=== PATIENT | male | born 1955 | race Caucasian/White ===

== ENCOUNTER 2017-09-23 18:15 | Observation (INO) | payer OTHER ==
[~2017-09-23] VITALS: Ht 175.3 cm; Wt 90.2 kg
[2017-09-23] MEDS ORDERED: ZESTRIL20 MG PO (18:52)
[2017-09-23] MEDS ORDERED: ACETAMINOPHEN-1 EAC1 PO (18:55)
[2017-09-23] MEDS ORDERED: INDAPAMIDE2.5 MG PO (19:43)
[2017-09-23] MEDS ORDERED: ASPIRIN81 MG PO (19:44)
[2017-09-23] MEDS ORDERED: TRIAMCINOLONE AC5 GM (19:50)
--- NOTE | 2017-09-23 23:04 | NUR ---
PT ARRIVED TO ROOM 119 FROM ED, CAME TO ED DUE NOT FEELING GOOD, POOR MEMORY FEELING OFF BALANCE. PT TIRED, WANTING TO SLEEP. ANSWERED QUESTIONS, CAN'T REMEMBER MEDICAL HISTORY. SON PRESENT.
--- NOTE | 2017-09-24 03:21 | NUR ---
PT NOTIFIED OF [facility], NO NEW ORDERS
--- NOTE | 2017-09-24 05:14 | NUR ---
PT CURRENTLY IN BED RESTING, EYES CLOSED, NO C/O H/A OR VISUAL PROBLEMS, NO C/O FACIAL PAIN. BP ON ADMISSION WAS 137/91, AT 0140 WAS 125/74. PT INDEPENDENT IN THE ROOM, HAS SLEPT MOST OF THIS SHIFT. NO FURTHER TEARFUL EPISODES SINCE ADMIT. HIS SON CALLED THIS UNIT EARLIER AND STATED TO PLEASE CALL HIM SOON PT GETS DC ORDERS HE LIVES IN [place]. WILL NOTIFY INCOMING RN
[2017-09-24] MEDS ORDERED: NORVASC5 MG PO (07:54)
[2017-09-24] MEDS ORDERED: INDAPAMIDE2.5 MG PO (07:55)
--- NOTE | 2017-09-24 08:30 | NUR ---
PT AWAKE IN BED, ATE MOST OF BREAKFAST, NANO WELL. PT DENIES DIZZINESS, OR LIGHT HEADEDNESS, REPORTS FEELING FATIGUED. TELE #3 ON, HR 95 SR. ALERT AND ORIENTED TO ALL. DENIES PAIN. IV SITE CDI, FLUSHES WELL. CALL LIGHT WITHIN REACH.
--- NOTE | 2017-09-24 08:45 | NUR ---
CALLED SON PER PT REQUEST TO UPDATE THAT PATIENT WILL BE DISCHARGED THIS AM. SON REPORTED HE WOULD BE COMING TO HOSPITAL SHORTLY
--- NOTE | 2017-09-26 08:47 | EKG ---
[facility] [address] [place] [address] Signed Normal sinus rhythm with sinus arrhythmia Normal ECG No previous ECGs available Confirmed by MANJINDER MITCHELL MD ([id number]) on 09/26/2017 8:47:30 AM Electronically Signed By: MANJINDER MITCHELL MD 09/26/17 0847 PATIENT NAME: PRASANTH VÁSQUEZ Electrocardiogram DATE OF : 51 PHYSICIAN: MANJINDER MITCHELL MD REPORT #: [id number] REPORT IS CONFIDENTIAL AND NOT TO BE RELEASED WITHOUT AUTHORIZATION
== END 2017-09-24 09:35 | disposition home or self-care (01) ==
LOC: ED 18:15 → MS 18:17
PROVIDERS: ADMIT Internal Medicine
DX: I16.0 Hypertensive urgency (principal); I10 Essential (primary) hypertension; S02.5XXD Fracture of tooth (traumatic), subsequent encounter for fracture with routine healing; W20.8XXD Other cause of strike by thrown, projected or falling object, subsequent encounter; F07.81 Postconcussional syndrome; F43.10 Post-traumatic stress disorder, unspecified; Z91.14 Patient's other noncompliance with medication regimen; Z87.891 Personal history of nicotine dependence; Z79.82 Long term (current) use of aspirin; Z79.899 Other long term (current) drug therapy
CPT/HCPCS: 70450; 70486; 71045; 80053; 83735; 85025; 93005; 93010; 96374; 96375; 96376; 99285; G0378; J2060